=== PATIENT | male | born 1970 | race Caucasian/White ===

== ENCOUNTER 2016-04-25 10:38 | Emergency (ER) | payer BC ==
--- NOTE | 2016-04-25 11:02 | UC ---
Cardiac HPI - HPI Summary HPI Summary: The patient comes in today for: 1. Chest pain: Onset: one week. Palliative/provocative: Laying in bed on his back. Activity does not make it worse. He shoveled snow yesterday and this did not cause any problems. Quality: REtrosternal "lump" sensation. Region: Retrosternal with a heaviness in his back. Nothing in the neck. Severity: /10 Time: Comes and goes. Associated symptoms: Palpitations: Onset "a couple weeks ago." I has had atrial fibrillation in the past. He was told to use medication he gave him to take. He did not have any stress test. He has worn a "heart monitor." And he does not remember it showing anything. He also had this "lump" sensation a couple years ago. No work up was done then and he was taken off lisinopril and put on Bystolic. He thought this made it better. This lump sensation is getting to be worse in severity and frequency. He thinks that he may have had an echocardiogram within the last 3-4 years--"OK." CAD risk factors: HTN: (+). DM: (-). Fm Hx: (+)--father had TN age 48. Cholesterol: (?). Previous disease: (-). Smoker: (-)--quit 12 years ago. Diaphoresis: None. Dyspnea: Mostly with palpitations. Nausea: None. History of GERD: none. * - History of Current Complaint Stated Complaint: PALPITATIONS,CHEST DISCOMFORT Time Seen by Provider: 04/25/16 10:46 Hx Obtained From: Patient - Allergy/Home Medications Allergies/Adverse Reactions: Allergies Allergy/AdvReac Type Severity Reaction Status Date / Time Metronidazole Allergy Dizziness Verified 04/25/16 10:54 Penicillins Allergy Hives Verified 04/25/16 10:54 PMH/Surg Hx/FS Hx/Imm Hx Previously Healthy: No Endocrine History Of: Denies: Diabetes, Thyroid Disease, Hyperthyroidism, Hypothyroidism, Dyslipidemia Cardiovascular History Of: Reports: Hypertension, Atrial Fibrillation - " Denies: Cardiac Disorders, Pacemaker/ICD, Myocardial Infarction, Congestive Heart Failure, Deep Vein Thrombosis, Bleeding Disorders Respiratory History Of: Denies: COPD, Asthma, Bronchitis, Pneumonia, Pulmonary Embolism GI/ History Of: Denies: Gastroesophageal Reflux, Ulcer, Gastrointestinal Bleed, Gall Bladder Disease, Kidney Stones, Diverticulitis, Renal Disease, Urosepsis Neurological History Of: Denies: TIA, CVA, Dementia, Seizures, Migraine Psychological History Of: Denies: Anxiety, Depression, Bipolar Disorder, Schizophrenia, Post Traumatic Stress Disorder Cancer History Of: Denies: Lung Cancer, Colorectal Cancer, Breast Cancer, Prostate Cancer, Cervical Cancer Other History Of: Negative For: HIV, Hepatitis B, Hepatitis C, Anticoagulant Therapy - Surgical History Surgical History: Yes Surgery Procedure, Year, and Place: Right knee arthroscopy 1996. Lypoma removed from back - Family History Known Family History: Positive: Cardiac Disease Negative: Hypertension, Diabetes - Social History Occupation: Employed Full-time Alcohol Use: Daily Substance Use Type: Marijuana Smoking Status (MU): Former Smoker When Did the Patient Quit Smoking/Using Tobacco: 2003 Review of Systems Constitutional: Negative Skin: Negative Eyes: Negative Respiratory: Negative Cardiovascular: Chest Pain Gastrointestinal: Negative Genitourinary: Negative All Other Systems Reviewed And Are Negative: Yes Physical Exam Triage Information Reviewed: Yes Appearance: Well-Appearing, No Pain Distress, Well-Nourished Vital Signs: Initial Vital Signs Temp 98.3 F 04/25/16 10:42 Pulse 67 04/25/16 10:42 Resp 18 04/25/16 10:42 BP 156/93 04/25/16 10:42 Pulse Ox 99 04/25/16 10:42 Vital Signs Reviewed: Yes Eyes: Positive: Conjunctiva Clear. Negative: Discharge ENT: Positive: Hearing grossly normal. Negative: Pharyngeal erythema, Nasal congestion, Nasal drainage, TM bulging, TM dull, TM red, Tonsillar swelling, Tonsillar exudate Dental: Negative: Gross Decay/Caries @, Dental Fracture @ Neck: Positive: Supple, Nontender, No Lymphadenopathy. Negative: Nuchal Rigidity Respiratory: Positive: Lungs clear, No respiratory distress, No accessory muscle use. Negative: Crackles, Wheezing Cardiovascular: Positive: RRR, No Murmur Abdomen Description: Positive: Nontender, No Organomegaly, Soft. Negative: Distended, Hernia @ Musculoskeletal: Positive: Strength Intact, ROM Intact Neurological: Positive: Alert, Muscle Tone Normal Psychological: Positive: Age Appropriate Behavior, Consolable Skin: Negative: rashes, breakdown Diagnostics - Laboratory Diagnostic Studies Completed/Ordered: EKG: Rate: 64. Rhythm: Sinus. Ectopy: None. Acute changes: None. - Assessment/Plan Course Of Treatment: Patient was told that I was concerned that he may have a cardiac cause for his chest pain even though the EKG did not show an obvious problem. He was encouraged to go to [facility] via ambulance, but he did not want to do this, but instead go there by his private car. - Clinical Impression Provider Diagnoses: Chest pain: Rule out TN. - Physician Notifications Discussed Patient Care With: Dr. Drummond was contacted and this patient discussed at 11:17 AM. Discharge - Discharge Plan Condition: Stable Disposition: AGAINST MEDICAL ADVICE Additional Instructions: Patient is to go directly to the [facility].
[2016-04-25 11:24] VITALS: BP 117/79
== END 2016-04-25 11:25 | disposition left against medical advice (07) ==
LOC: UCCORT 10:38
DX: R07.89 Other chest pain (principal); Z88.1 Allergy status to other antibiotic agents; Z88.0 Allergy status to penicillin; Z87.891 Personal history of nicotine dependence
CPT/HCPCS: 93005; 99213; G0463

== ENCOUNTER 2017-05-31 07:27 | Emergency (ER) | payer BC ==
--- NOTE | 2017-05-31 07:39 | UC ---
Complaint Male HPI - HPI Summary HPI Summary: Pt presents to with report of mild, intermittent dysuria x 3 days. Pt denies urgency, frequency, hematuria. No n/v/d. No fever, chills. no penile discharge. No scrotal pain. pt feels emptying bladder Pt with a h/o multiple "compressed discs" in his back. Pt has had these sx before related to back. Pt is leaving to drive to [place] and wanted to get checked before trip. Pt without leg weakness, paresthesia. No change in sensation with wiping. No rectal pain. No difficulty with bowel and bladder. Pt is in monogamous relation. Denies concern for STD. No h/o similar. No analgesia taken pt's medications reviewed this visit - History of Current Complaint Stated Complaint: URINARY COMPLAINT Time Seen by Provider: 05/31/17 07:30 Hx Obtained From: Patient Onset/Duration: Gradual Onset, Lasting Days Timing: Intermittent, Lasting Seconds Severity Initially: Mild Severity Currently: None Pain Scale Used: 0-10 Numeric Location: None Aggravating Factor(s): Other - urination - intermittent Alleviating Factor(s): Nothing Associated Signs And Symptoms: Positive: Negative, Back Pain - chronic - no new changes - Allergies/Home Medications Allergies/Adverse Reactions: Allergies Allergy/AdvReac Type Severity Reaction Status Date / Time metronidazole [From Flagyl] Allergy Dizziness Verified 05/31/17 08:03 Penicillins Allergy Hives Verified 05/31/17 08:03 PMH/Surg Hx/FS Hx/Imm Hx Previously Healthy: Yes Other History Of: Negative For: HIV, Hepatitis B, Hepatitis C, Anticoagulant Therapy - Surgical History Surgical History: Yes Surgery Procedure, Year, and Place: Right knee arthroscopy 1996. Lypoma removed from back - Family History Known Family History: Positive: Cardiac Disease Negative: Hypertension, Diabetes - Social History Occupation: Employed Full-time Lives: With Family Alcohol Use: Daily - Pt denies withdrawal sx - declined offers for referrals Substance Use Type: Marijuana Smoking Status (MU): Former Smoker When Did the Patient Quit Smoking/Using Tobacco: 2003 Review of Systems Constitutional: Negative Gastrointestinal: Negative Genitourinary: Dysuria All Other Systems Reviewed And Are Negative: Yes Physical Exam Triage Information Reviewed: Yes Appearance: Well-Appearing, No Pain Distress, Well-Nourished Vital Signs Reviewed: Yes Eyes: Positive: Conjunctiva Clear ENT: Positive: Hearing grossly normal Neck: Positive: Supple Respiratory: Positive: Lungs clear, Normal breath sounds, No respiratory distress, No accessory muscle use Cardiovascular Exam: Normal Cardiovascular: Positive: RRR, No Murmur Abdominal Exam: Normal Abdomen Description: Positive: Nontender, No Organomegaly, Soft, Other: - no discomfort - soft + BS no guarding, no rebound No CVA Bowel Sounds: Positive: Present Musculoskeletal Exam: Normal Musculoskeletal: Positive: No Edema Neurological Exam: Normal Neurological: Positive: Alert, Muscle Tone Normal Psychological Exam: Normal Psychological: Positive: Normal Response To Family Skin Exam: Normal Complaint Male Course/Dx - Course Course Of Treatment: pt with intermittent episodes of dysuria- similar to past sx he has experienced with is back dx. Pt without other complaints, denies concern for STD. Will check urine. If neg, will culture. will check GC/CH. Pt declined pyridium. pt given Rx for macrobid - will fill and take with him out of state - will await f/u phone call from us. d/w pt concern for back - recommend frequent stop and stretch with drive. heat. pt recommended immediately to ED if sx develop during travels- pt states understanding and agreement (d/w pt sensory,s trength changes, difficulty with urination, etc) - Differential Dx/Diagnosis Provider Diagnoses: dysuria Discharge - Sign-Out/Discharge Documenting (check all that apply): Discharge - Discharge Plan Condition: Stable Disposition: HOME Prescriptions: Nitrofurantoin Macrocrystal [Nitrofurantoin] 100 mg PO BID #14 capsule Patient Education Materials: Dysuria (ED) Referrals: Irvin Hudson MD [Primary Care Provider] - Additional Instructions: - stay well hydrated. Drink plenty of non-caffinated, non-carbonated beverages -okay to alternate ibuprofen (advil, motrin) and tylenol every 3 hours for pain or fever - you urine has been sent for additional testing - you will receive a call from our care team if you need to start the antibiotics. As discussed, fill the prescription and take it with you but do not start unless a care team contact your - Monitor your symptoms closely - if you develop increased back pain, leg weakness, blood in your urine, leg numbness or weakness or other concerns it is recommended you go directly to the nearest emergency department - apply heat to your back - slow gentle stretching - Billing Disposition and Condition Condition: STABLE Disposition: HOME
[2017-05-31 07:42] VITALS: BP 146/76
--- NOTE | 2017-06-02 07:03 | UC ---
- Progress Note Progress Note: Urine culture negative. Ok to stop antibiotics. Discharge - Sign-Out/Discharge Documenting (check all that apply): Discharge - Discharge Plan Condition: Stable Disposition: HOME Prescriptions: Nitrofurantoin Macrocrystal [Nitrofurantoin] 100 mg PO BID #14 capsule Patient Education Materials: Dysuria (ED) Referrals: Irvin Hudson MD [Primary Care Provider] - Additional Instructions: - stay well hydrated. Drink plenty of non-caffinated, non-carbonated beverages -okay to alternate ibuprofen (advil, motrin) and tylenol every 3 hours for pain or fever - you urine has been sent for additional testing - you will receive a call from our care team if you need to start the antibiotics. As discussed, fill the prescription and take it with you but do not start unless a care team contact your - Monitor your symptoms closely - if you develop increased back pain, leg weakness, blood in your urine, leg numbness or weakness or other concerns it is recommended you go directly to the nearest emergency department - apply heat to your back - slow gentle stretching - Billing Disposition and Condition Condition: STABLE Disposition: HOME
== END 2017-05-31 08:12 | disposition home or self-care (01) ==
LOC: UCCORT 07:27
DX: R30.0 Dysuria (principal); Z88.1 Allergy status to other antibiotic agents; Z88.0 Allergy status to penicillin; Z87.891 Personal history of nicotine dependence
CPT/HCPCS: 81003; 87086; 87491; 87591; 99212; G0463

== ENCOUNTER 2017-10-08 17:46 | Emergency (ER) | payer BC ==
[2017-10-08 17:56] VITALS: BP 171/89
[2017-10-08] MEDS ORDERED: Aspirin TAB* 325 MG PO ONE (18:06)
--- NOTE | 2017-10-08 18:13 | UC ---
Cardiac HPI - HPI Summary HPI Summary: 47-year-old male with history of hypertension presents with episode of chest discomfort starting this morning radiating to the left arm, sudden onset, not associated with any short of breath or pleuritic pain. Denies any recent surgeries or immobilization. No prior blood clots in the past. Denies any reproducibility or discomfort with palpation or movement. No prior episodes. Patient has significant family history with dad at the age of 45 from a heart attack. - History of Current Complaint Chief Complaint: UCUpperExtremity Stated Complaint: LEFT ARM PAIN Time Seen by Provider: 10/08/17 17:51 Pain Intensity: 4 - Allergy/Home Medications Allergies/Adverse Reactions: Allergies Allergy/AdvReac Type Severity Reaction Status Date / Time levofloxacin [From Levaquin] Allergy Anaphylatic Verified 10/08/17 17:57 Shock metronidazole [From Flagyl] Allergy Anaphylatic Verified 10/08/17 17:57 Shock Penicillins Allergy Hives Verified 05/31/17 08:03 Home Medications: Home Medications ALPRAZolam TAB* [Xanax TAB*] 0.25 mg PO TID PRN 10/08/17 [History Confirmed ] PMH/Surg Hx/FS Hx/Imm Hx - Additional Past Medical History Additional PMH: Hypertension Other History Of: Negative For: HIV, Hepatitis B, Hepatitis C, Anticoagulant Therapy - Surgical History Surgical History: Yes Surgery Procedure, Year, and Place: Right knee arthroscopy 1996. Lypoma removed from back - Family History Known Family History: Positive: Cardiac Disease Negative: Hypertension, Diabetes - Social History Alcohol Use: Daily Alcohol Amount: 6 Substance Use Type: Marijuana Substance Use Comment - Amount & Last Used: 2 days Smoking Status (MU): Former Smoker When Did the Patient Quit Smoking/Using Tobacco: 2003 Review of Systems Cardiovascular: Other - Chest discomfort Musculoskeletal: Other: - left arm pain as described in history of present illness All Other Systems Reviewed And Are Negative: Yes Physical Exam - Summary Physical Exam Summary: Gen: alert, in no acute distress HEENT: EOMI, normoecphalic, atruamatic Neck: supple, no masses CV: Normal s1 s2, no murmurs. Normal distal pulses in the radial and pedal areas bilaterally Resp: normal breath sounds b/l GI: no tenderness, no masses Musculoskeletal: normal ROM all 4 extremities Skin: no rash Lymph: no lymphadenopathy Psych: appropriate affect, oriented Triage Information Reviewed: Yes Vital Signs: Initial Vital Signs Temp 37.1 C 10/08/17 17:52 Pulse 90 10/08/17 17:52 Resp 16 10/08/17 17:52 BP 171/89 10/08/17 17:52 Pulse Ox 100 10/08/17 17:52 Diagnostics - EKG EKG Comments: Normal sinus rhythm at a rate of 78, no acute ischemic ST segment changes, RSR' pattern in V2 - Assessment/Plan Course Of Treatment: spoke with Dr. Drummond at 1811 who kindly agrees that emergency department evaluation would be appropriate. Patient says he would feel more comfortable driving himself than going in am ambulance. The patient understands discharge instructions to go straight to the emergency department. - Clinical Impression Provider Diagnoses: Chest pain Discharge - Sign-Out/Discharge Documenting (check all that apply): Patient Departure - to the emergency department All imaging exams completed and their final reports reviewed: No Studies - Discharge Plan Condition: Stable Disposition: HOME Referrals: Irvin Hudson MD [Primary Care Provider] - Additional Instructions: PLEASE GO STRAIGHT TO EMERGENCY DEPARTMENT AT [facility] - Billing Disposition and Condition Condition: STABLE Disposition: Home
== END 2017-10-08 18:18 | disposition home health service (06) ==
LOC: UCCORT 17:46
DX: R07.89 Other chest pain (principal); I10 Essential (primary) hypertension; Z88.1 Allergy status to other antibiotic agents; Z88.0 Allergy status to penicillin; Z87.891 Personal history of nicotine dependence; M79.602 Pain in left arm
CPT/HCPCS: 93005; 99212; G0463

== ENCOUNTER 2017-10-12 19:02 | Emergency (ER) | payer BC ==
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
[2017-10-12 20:43] VITALS: BP 142/93
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
== END 2017-10-12 20:45 | disposition home or self-care (01) ==
LOC: UCCORT 19:02
DX: S62.315A Displaced fracture of base of fourth metacarpal bone, left hand, initial encounter for closed fracture (principal); S62.317A Displaced fracture of base of fifth metacarpal bone, left hand, initial encounter for closed fracture; Y04.0XXA Assault by unarmed brawl or fight, initial encounter; Y92.9 Unspecified place or not applicable; Z88.8 Allergy status to other drugs, medicaments and biological substances; Z88.0 Allergy status to penicillin; Z88.1 Allergy status to other antibiotic agents; Z87.891 Personal history of nicotine dependence
CPT/HCPCS: 26755; 28470; 99212; G0463

== ENCOUNTER 2017-11-04 13:15 | Day surgery (SDC) | payer BC ==
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
[2017-11-04] MEDS ORDERED: DiMENhydriNATE IV* 50 MG/ML VIAL IV PUSH PRN (14:56)
[2017-11-04] MEDS ORDERED: Naloxone* 0.4 MG/ML 1 ML VIAL IV PRN (14:56)
[2017-11-04] MEDS ORDERED: HYDROcodone/ACETAMIN 5-325 MG* 1 TAB PO PRN (14:56)
[2017-11-04] MEDS ORDERED: Propofol* 10 MG/ML 20 ML BTL IV PUSH ONE (15:12)
[2017-11-04] MEDS ORDERED: fentaNYL* 50 MCG/ML 2 ML VIAL (100 MCG VIAL) ONE ×4 (15:12→18:33)
[2017-11-04] MEDS ORDERED: Midazolam* 1 MG/ML 5 ML VIAL (5 MG) ONE (15:12)
[2017-11-04] MEDS ORDERED: Lidocaine 2% PF * 5 ML VIAL ONE (15:12)
[2017-11-04] MEDS ORDERED: Clindamycin 900 MG/D5W BAG(*) 900 MG/50 ML BAG IVPB ONE (15:23)
[2017-11-04] MEDS ORDERED: Ketorolac INJ* 30 MG/ML 1 ML VIAL ONE (15:46)
[2017-11-04] MEDS ORDERED: Bupivacaine 0.5% SDV PF* 30ML VIAL ONE (16:32)
[2017-11-04] MEDS ORDERED: Ondansetron INJ* 2 MG/ML VIAL ONE (16:48)
[2017-11-04] MEDS ORDERED: PROCHLORPERAZINE INJ 5 MG/ML 2 ML VIAL ONE (17:33)
[2017-11-04] MEDS: fentaNYL* 50 MCG/ML 2 ML VIAL (100 MCG VIAL) IV PRN ×2 (18:34→18:59)
[2017-11-04] MEDS ORDERED: oxyCODONE/Acetamin 5/325 MG* TAB ONE ×2 (18:54→19:56)
[2017-11-04] MEDS: oxyCODONE/Acetamin 5/325 MG* TAB PO PRN ×2 (18:58→19:56)
[2017-11-04 20:12] VITALS: BP 135/84
--- NOTE | 2017-11-05 07:05 | RAD ---
INDICATION: Left hand operative reduction internal fixation. COMPARISON: Comparison is made with a prior x-ray study of the left hand from October 12, 2017. TECHNIQUE: 10 seconds of intermittent fluoroscopic guidance were provided and 4 spot films of the left hand were obtained in the operating room. FINDINGS: The films demonstrate surgical plates present along the dorsal aspect of the fourth and fifth metacarpals spanning the fracture fragments. The bones are in normal alignment. IMPRESSION: INTRAOPERATIVE CONTROL FILMS. CPT II Codes: G9500
--- NOTE | 2017-11-05 12:29 | OP ---
DATE OF OPERATION: 11/04/17 [facility] DATE OF : 70 SURGEON: Clifton Bustamante MD ASSISTANTS: 1. ABIMAEL Mirza 2. ABIMAEL Zhang An optometrist assistant was needed for the entirety of the procedure to aid in position of the arm and retraction. ANESTHESIOLOGIST: Dr. Muse. ANESTHESIA: General. PRE-OP DIAGNOSES: 1. Left displaced and rotated fourth metacarpal shaft fracture. 2. Left displaced and rotated fifth metacarpal fracture. POST-OP DIAGNOSES: 1. Left displaced and rotated fourth metacarpal shaft fracture. 2. Left displaced and rotated fifth metacarpal fracture. OPERATIVE PROCEDURE: 1. Open reduction internal fixation, left fourth metacarpal fracture. 2. Open reduction internal fixation, left fifth metacarpal fracture. INDICATIONS: Norm's fractures were little over 3 weeks old. He has been attempting to treat this non-operatively. It became frankly rotated. He was seen by me. We talked about surgical intervention. He wanted to proceed. He understands the risks of infection, nonunion, malunion, hardware failure, neurovascular injury including numbness on the dorsum of the hand. He wishes to proceed. ESTIMATED BLOOD LOSS: 2 mL. COMPLICATIONS: None. FINDINGS: See above and below. DESCRIPTION OF PROCEDURE: Norm was seen in the preoperative holding area. The correct site, side, and procedure were identified. We came back to the operating room where the arm was prepped and draped in the usual fashion. A time-out was performed. The arm was exsanguinated with the Esmarch and the tourniquet was inflated to 250 mmHg. I made a longitudinal incision on the dorsum of the hand between the fourth and fifth metacarpals. Dissection was carried down. The interval between the EDM and EDC tendons was utilized to gain access to the fifth metacarpal shaft. Distally, the extensor barrios was split a little bit to allow access to the great distal fracture. I then released the periosteum over the fourth metacarpal shaft and subperiosteal dissection was used to expose the fourth metacarpal shaft fracture. I went ahead and mobilized the fracture. There was a quite bit of soft callus, which was all curetted away and excised. I first reduced the fifth metacarpal shaft fracture and clamped this with a [id number]-tqcxepucb clamp and placed a couple of 1.5-mm countersunk lag screws. I then placed a T-plate distally leaving the plate just proximal to the articular surface of the metacarpal head. This was secured with locking screws distally and cortical screws proximally. I then reduced the fourth metacarpal fracture, placed a couple of lag screws across the very long oblique fracture. I then trimmed to size and placed a 1.5- mm plate of the Synthes Variable Angle handset. This was secured distally and proximally. Once everything was looking good, I irrigated out the wound. Final fluoroscopic imaging showed anatomic alignment of the fractures and appropriate hardware placement. I then closed the periosteum over the fourth metacarpal fracture. I closed the periosteum and capsule distally over the fifth metacarpal plate. Proximally, I was not able to close it up. My split in the extensor barrios was repaired with 4-0 Prolene sutures. The wound was then irrigated out. The wound was closed with 3-0 Monocryl suture and Steri-Strips. 0.5% Marcaine was infiltrated into the operative area. The wounds were dressed and a short-arm ulnar gutter splint was applied leaving the index finger free. The hand was splinted in the intrinsic plus position. Tourniquet was deflated. Hand pinked up immediately. He has been taken to recovery room in stable condition. [id number]/[facility] #: [id number] JANEY
== END 2017-11-04 20:40 | disposition home or self-care (01) ==
LOC: OR 13:15
PROVIDERS: ATTEND Orthopaedic Surgery Hand Surgery
DX: S62.325A Displaced fracture of shaft of fourth metacarpal bone, left hand, initial encounter for closed fracture (principal); S62.327A Displaced fracture of shaft of fifth metacarpal bone, left hand, initial encounter for closed fracture; Y04.0XXA Assault by unarmed brawl or fight, initial encounter; Y92.9 Unspecified place or not applicable; I10 Essential (primary) hypertension; Z87.891 Personal history of nicotine dependence
CPT/HCPCS: 76000; A9270-GY; C1713; C1776; J0780; J1885; J2250; J2405; J2704; J3010

== ENCOUNTER 2018-01-23 10:50 | Day surgery (SDC) | payer BC ==
[~2018-01-23 10:50] MED LIST: Buffered Lidocaine 0.9% SYRIN* 5 ML/SYR SYRINGE INTRADERM ONE; Dexamethasone IV* 4 MG/ML 1 ML (4 MG) IV SLOW PU ONE; Dexamethasone IV* 4 MG/ML 1 ML (4 MG) ONE; Famotidine IV* 10 MG/ML 2 ML (20 mg) IV ONE; Famotidine IV* 10 MG/ML 2 ML (20 mg) ONE; Lactated Ringers 1000 ML Bag* 1,000 ML IV SCH
[2018-01-23] MEDS ORDERED: Midazolam* 1 MG/ML 5 ML VIAL (5 MG) ONE (12:30)
[2018-01-23] MEDS ORDERED: fentaNYL* 50 MCG/ML 5 ML VIAL (250 MCG VIAL) ONE (12:30)
[2018-01-23] MEDS ORDERED: Ketorolac INJ* 30 MG/ML 1 ML VIAL ONE (12:33)
[2018-01-23] MEDS ORDERED: Ondansetron INJ* 2 MG/ML VIAL ONE (12:33)
[2018-01-23] MEDS ORDERED: Propofol* 10 MG/ML 20 ML BTL ONE (12:33)
[2018-01-23] MEDS ORDERED: Lidocaine 2% PF * 5 ML VIAL ONE (12:33)
[2018-01-23] MEDS ORDERED: Bupivacaine 0.25% SDV PF* 10 ML VIAL INJ ONE ×2 (12:35→14:20)
[2018-01-23] MEDS ORDERED: Betamethasone INJ* 6 MG/ML 5 ML VIAL (30 MG) ONE (14:00)
[2018-01-23] MEDS ORDERED: fentaNYL* 50 MCG/ML 2 ML VIAL (100 MCG VIAL) IV PRN (14:12)
[2018-01-23] MEDS ORDERED: Naloxone* 0.4 MG/ML 1 ML VIAL IV PRN (14:12)
[2018-01-23] MEDS ORDERED: oxyCODONE/Acetamin 5/325 MG* TAB PO PRN (14:12)
[2018-01-23] MEDS ORDERED: DiMENhydriNATE IV* 50 MG/ML VIAL IV PUSH PRN (14:12)
[2018-01-23] MEDS ORDERED: Ondansetron INJ* 2 MG/ML VIAL IV PRN (14:12)
[2018-01-23] MEDS ORDERED: HYDROmorphone INJ1* 1 MG/ML SYRINGE IV PRN (14:12)
[2018-01-23] MEDS ORDERED: oxyCODONE/Acetamin 5/325 MG* TAB ONE (14:34)
[2018-01-23 15:02] VITALS: BP 118/75
--- NOTE | 2018-01-23 20:55 | OP ---
DATE OF PROCEDURE: 01/23/18 - [facility] DATE OF : 70 SURGEON: Clifton Bustamante MD PRESIDENT FINANCIAL INSTITUTION: None. ANESTHESIOLOGIST: Dr. Yu. ANESTHESIA: General. PRE-PROCEDURE DIAGNOSIS: Global left hand stiffness, status post open reduction and internal fixation, left 4th and 5th metacarpal bones over a couple of months ago. POST-PROCEDURE DIAGNOSIS: Global left hand stiffness, status post open reduction and internal fixation, left 4th and 5th metacarpal bones over a couple of months ago. OPERATIVE PROCEDURE: Manipulation under anesthesia, left hand including all four MCP and all four PIP joints of the index, middle, ring, and the small fingers. INDICATIONS: Norm had the aforementioned injury and it has gotten quite stiff. He really is having difficult time moving the hand. He has developed a bit of a regional pain syndrome type picture. He has been working with his therapist. We tried to see if we could increase his motion incrementally by doing a manipulation now that the bone has solidly healed. ESTIMATED BLOOD LOSS: 0 mL. COMPLICATIONS: None. FINDINGS: See above and below. DESCRIPTION OF PROCEDURE: Norm was seen in the preoperative holding area. The correct side, site, and procedure were identified. We came back to the operating room where anesthesia was then induced and we had a time-out. I then manipulated each of the MP joints and IP joints of the left hand. There were several bands of scar tissue that were noted to give way. The MP flexion and PIP flexion as well as the small finger PIP extension were all markedly improved with the manipulation. I told Norm that I would give him a wrist block to help with postoperative discomfort. I did that with 0.25% Marcaine. While I was doing the manipulation, I did infiltrate a little bit of betamethasone around the A1 massimo areas, particularly of the middle finger as it felt like it was quite tight there. He did very well and tolerated this all very well. He was woken up and taken to the recovery room in stable condition. [id number]/[facility] #: [id number] MTDD
== END 2018-01-23 15:15 | disposition home or self-care (01) ==
LOC: OREAST 10:50
PROVIDERS: ATTEND Orthopaedic Surgery Hand Surgery
DX: M25.642 Stiffness of left hand, not elsewhere classified (principal); S62.327S Displaced fracture of shaft of fifth metacarpal bone, left hand, sequela; S62.32 Displaced fracture of shaft of other metacarpal bone; I10 Essential (primary) hypertension; Z88.0 Allergy status to penicillin; Z88.8 Allergy status to other drugs, medicaments and biological substances; Z87.891 Personal history of nicotine dependence
CPT/HCPCS: A9270-GY; J0702; J1100; J1885; J2250; J2405; J2704; J3010; J3490

== ENCOUNTER 2018-04-17 17:58 | Emergency (ER) | payer BC ==
[2018-04-17 19:18] VITALS: BP 125/64
--- NOTE | 2018-04-17 20:11 | UC ---
Complaint Male HPI - HPI Summary HPI Summary: 47-year-old male comes in with a chief complaint of pain in his penis. Been going on for about a month. He had his urine checked his primary care doctors and also he had a rectal exam and he did not have pain with massage of the prostate. No fevers or chills. Reports normal bowel movements. Has not seen any blood in his urine. Over the last several days he has developed left flank pain. Does have a history of diverticulosis. No nausea. Denies any concern of STI. No complaint of any testicular or scrotal pain. - History of Current Complaint Chief Complaint: UCGU Stated Complaint: BACK PAIN,URINARY COMPLAINT Time Seen by Provider: 04/17/18 19:51 Pain Intensity: 3 - Allergies/Home Medications Allergies/Adverse Reactions: Allergies Allergy/AdvReac Type Severity Reaction Status Date / Time Iodinated Contrast- Oral and Allergy Severe Anaphylatic Verified 01/23/18 11:28 IV Dye Shock levofloxacin [From Levaquin] Allergy Severe Anaphylatic Verified 01/23/18 11:28 Shock metronidazole [From Flagyl] Allergy Severe Anaphylatic Verified 01/23/18 11:28 Shock Penicillins Allergy Severe Hives Verified 01/23/18 11:28 PMH/Surg Hx/FS Hx/Imm Hx Previously Healthy: Yes Other History Of: Negative For: HIV, Hepatitis B, Hepatitis C, Anticoagulant Therapy - Surgical History Surgical History: Yes Surgery Procedure, Year, and Place: Right knee arthroscopy 1996. Lypoma removed from back. left hand surgery 11/04/2017. wisdom teeth removed. colonoscopy - Family History Known Family History: Positive: Cardiac Disease Negative: Hypertension, Diabetes - Social History Alcohol Use: Daily Alcohol Amount: 6 Substance Use Type: Marijuana Substance Use Comment - Amount & Last Used: daily user Smoking Status (MU): Former Smoker Type: Cigarettes Amount Used/How Often: 1 ppd Length of Time of Smoking/Using Tobacco: approx 20+ yrs When Did the Patient Quit Smoking/Using Tobacco: 2003 Review of Systems All Other Systems Reviewed And Are Negative: Yes Constitutional: Positive: Negative Skin: Positive: Negative Eyes: Positive: Negative ENT: Positive: Negative Respiratory: Positive: Negative Cardiovascular: Positive: Negative Gastrointestinal: Positive: Other - SEE HPI Genitourinary: Positive: Vaginal/Penile Pain. Negative: Hematuria, Ulceration/ Lesion Motor: Positive: Negative Neurovascular: Positive: Negative Musculoskeletal: Positive: Negative Neurological: Positive: Negative Psychological: Positive: Negative Is Patient Immunocompromised?: No Physical Exam Triage Information Reviewed: Yes Appearance: Well-Appearing, No Pain Distress, Well-Nourished Vital Signs: Initial Vital Signs Temp 98.3 F 04/17/18 19:13 Pulse 60 04/17/18 19:13 Resp 15 04/17/18 19:13 BP 125/64 04/17/18 19:13 Pulse Ox 100 04/17/18 19:13 Vital Signs Reviewed: Yes Eye Exam: Normal Eyes: Positive: Conjunctiva Clear Neck exam: Normal Neck: Positive: Supple Respiratory: Positive: Lungs clear, Normal breath sounds, No respiratory distress Cardiovascular: Positive: RRR Abdomen Description: Positive: Nontender, Soft, CVA Tenderness (L). Negative: CVA Tenderness (R), Distended, Guarding Bowel Sounds: Positive: Present Male Genital Exam: Positive: Normal Genitalia. Negative: Epididymal Tenderness , Inguinal Tenderness, Lesions, Scrotum Tenderness (R), Scrotum Tenderness (L), Testicular Tenderness (R), Testicular Tenderness (L), Urethral Discharge Musculoskeletal Exam: Normal Musculoskeletal: Positive: Strength Intact, ROM Intact Neurological Exam: Normal Neurological: Positive: Alert, Muscle Tone Normal Psychological Exam: Normal Psychological: Positive: Age Appropriate Behavior Skin Exam: Normal Complaint Male Course/Dx - Differential Dx/Diagnosis Provider Diagnosis: Left flank pain, Penis pain Discharge - Sign-Out/Discharge Documenting (check all that apply): Patient Departure All imaging exams completed and their final reports reviewed: Yes - Discharge Plan Condition: Stable Disposition: HOME Prescriptions: Sulfamethox/Trimethoprim DS* [Bactrim DS 800/160 TAB*] 1 tab PO BID #26 tab Patient Education Materials: Flank Pain (ED) Referrals: Irvin Hudson MD [Primary Care Provider] - Gary Cavazos MD [Medical Doctor] - Gage Short MD [Medical Doctor] - Additional Instructions: FOLLOW UP WITH UROLOGY. GET RECHECKED FOR ANY WORSENING OF YOUR CONDITION; PAIN, FEVER, YOU FEEL ILL OR QUESTIONS OR CONCERNS. - Billing Disposition and Condition Condition: STABLE Disposition: Home
[2018-04-17] MEDS ORDERED: Sulfamethox/Trimethoprim DS 800/160* TAB PO ONE ×2 (22:07)
[2018-04-18 11:00] LABS: ABS Basophils 0 10^3/ul (0-0.2); ABS Eosinophils 0 10^3/ul (0-0.6); ABS Lymphocytes 1.6 10^3/ul (1.0-4.8); ABS Monocytes 0.6 10^3/ul (0-0.8); ABS Neutrophils 4.8 10^3/ul (1.5-7.7); ABS Nucleated RBC 0 10^3/ul; Eosinophil % 0.6 %; Hematocrit 42 % (42-52); Hemoglobin 14.1 g/dl (14.0-18.0); Lymphocyte % 23.1 %; Mean Corpuscular HGB Conc 33 g/dl (31-36); Mean Corpuscular Hemoglobin 31 pg (27-31); Mean Corpuscular Volume 93 fL (80-94); Mean Platelet Volume 8.9 fL (7.4-10.4); Nucleated Red Blood Cells % 0.1; Platelet Count 302 10^3/ul (150-450); Red Blood Count 4.57 10^6/ul (4.00-5.40); Red Cell Distribution Width 14 % (10.5-15); White Blood Count 7.1 10^3/ul (3.5-10.8)
[2018-04-18 11:13] LABS: Albumin 4.8 g/dL (3.2-5.2); Anion Gap 6 mmol/L (2-11); CO2 Carbon Dioxide 30 mmol/L (22-32); Chloride 102 mmol/L (101-111); Potassium 4.1 mmol/L (3.5-5.0); Sodium 138 mmol/L (135-145)
[2018-04-18 11:19] LABS: ALT 16 U/L (7-52); AST 14 U/L (13-39); Albumin/Globulin Ratio 2.3 (1-3); Alkaline Phosphatase 83 U/L (34-104); BUN/Creatinine Ratio 25.3 (8-20); Blood Urea Nitrogen 22 mg/dL (6-24); C Reactive Protein < 1.00 mg/L (<8.01); EGFR African American 113.8 (>60); EGFR Non-African American 94.1 (>60); Globulin 2.1 g/dL (2-4); Glucose 93 mg/dL (70-100); Total Protein 6.9 g/dL (6.4-8.9)
[2018-04-21 12:47] LABS: Neisseria gonorrhoeae (GC) RNA Negative (Negative)
== END 2018-04-17 22:19 | disposition home or self-care (01) ==
LOC: UCCORT 17:58
DX: N48.89 Other specified disorders of penis (principal); R10.9 Unspecified abdominal pain; K57.30 Diverticulosis of large intestine without perforation or abscess without bleeding; Z91.041 Radiographic dye allergy status; Z88.1 Allergy status to other antibiotic agents; Z88.0 Allergy status to penicillin; Z87.891 Personal history of nicotine dependence
CPT/HCPCS: 36415; 74176; 80053; 81003; 85025; 86140; 87086; 87491; 87591; 99212; A9270-GY; G0463

== ENCOUNTER 2018-05-31 17:00 | Emergency (ER) | payer BC ==
[2018-05-31 17:21] VITALS: BP 110/71
--- NOTE | 2018-05-31 17:31 | UC ---
Abdominal Pain Male HPI - HPI Summary HPI Summary: Pt with history of recurrent diverticulitis. Pt was hospitalized x 10 days for diverticlast summer. no surgery - has met with surgeon. Pt with h/o small perforation - no abscess, no intervention. Pt here with 3 days of progressive LLQ pain, mild nausea. Pt states feels like his typical diverticulitis. + chills , no fever. + diarrhea x 2 days. No dysuria, hematuria, testiclur or penile pain Pt with h/o anaphylaxis to Levofloxacin, Flagyl Hives to Pcn, augmentin medications UTD - History of Current Complaint Chief Complaint: UCGI Stated Complaint: LOWER ABD PAIN Time Seen by Provider: 05/31/18 17:27 Hx Obtained From: Patient Timing: Constant Severity Initially: Mild Severity Currently: Mild Pain Intensity: 2 - Allergies/Home Medications Allergies/Adverse Reactions: Allergies Allergy/AdvReac Type Severity Reaction Status Date / Time Iodinated Contrast- Oral and Allergy Severe Anaphylatic Verified 05/31/18 17:09 IV Dye Shock levofloxacin [From Levaquin] Allergy Severe Anaphylatic Verified 05/31/18 17:09 Shock metronidazole [From Flagyl] Allergy Severe Anaphylatic Verified 05/31/18 17:09 Shock Penicillins Allergy Severe Hives Verified 05/31/18 17:09 ciprofloxacin Allergy anaphylaxis Verified 05/31/18 17:25 to levofloxacin PMH/Surg Hx/FS Hx/Imm Hx Previously Healthy: Yes Other History Of: Negative For: HIV, Hepatitis B, Hepatitis C, Anticoagulant Therapy - Surgical History Surgical History: Yes Surgery Procedure, Year, and Place: Right knee arthroscopy 1996. Lypoma removed from back. left hand surgery 11/04/2017. wisdom teeth removed. colonoscopy - Family History Known Family History: Positive: Cardiac Disease, Non-Contributory Negative: Hypertension, Diabetes - Social History Lives: With Family Alcohol Use: Daily Alcohol Amount: 6 beers Substance Use Type: Marijuana Substance Use Comment - Amount & Last Used: frequent use, last was 05/31/18 Smoking Status (MU): Former Smoker Type: Cigarettes Amount Used/How Often: 1 ppd Length of Time of Smoking/Using Tobacco: approx 20+ yrs When Did the Patient Quit Smoking/Using Tobacco: 2003 Review of Systems All Other Systems Reviewed And Are Negative: Yes Constitutional: Positive: Chills Skin: Positive: Negative Eyes: Positive: Negative Gastrointestinal: Positive: Abdominal Pain, Diarrhea. Negative: Nausea Genitourinary: Negative: Hematuria, Frequency, Urgency Physical Exam - Summary Physical Exam Summary: Vital Signs Reviewed: Yes A+Ox3, no distress Eyes: Conjunctiva Clear, FELIX. EOM intact and full ENT: Hearing grossly normal TM x 2 clear, mmoist, uvula midline, no exudate, no erythema Neck: Positive: Supple Respiratory: Positive: No respiratory distress, No accessory muscle use + CTA throughout no w/r Cardiovascular: RRR nl s1, s2 no m/r CBT <2 sec abd soft + BS, + TTP LLE no guarding, no reboun neg CVA Musculoskeletal Exam: MATHEW x 4 without difficulty Strength Intact, ROM Intact Neurological: Positive: Alert, + sensation throughout Psychological: Positive: Normal Response To Family Skin: Positive: no rash, no ecchymosis Triage Information Reviewed: Yes Vital Signs: Initial Vital Signs Temp 98.7 F 05/31/18 17:11 Pulse 76 05/31/18 17:11 Resp 20 05/31/18 17:11 BP 110/71 05/31/18 17:11 Pulse Ox 100 05/31/18 17:11 Abd Pain Male Course/Dx - Course Course Of Treatment: Patient presents to urgent care reporting to 3 days of progressive left lower quadrant pain. Patient states it feels similar to his past episodes of diverticulitis. Patient states he has had some indolent ongoing back pain that is attributed to an old back injury. No fevers or chills. No analgesia taken. No pain in his penis or testicles. On exam patient with tenderness left lower quadrant. Patient's urinalysis negative for acute process. I had a long discussion with patient. His previous surgeon is not superintendent operations division today. Patient unable to take standard of care antibiotics. We'll consider clindamycin if new had sure follow-up. We'll discharge patient with recommendation to emergency department. Patient states understanding agreement with plan. - Differential Dx/Clinical Impression Provider Diagnosis: Abdominal pain Discharge - Sign-Out/Discharge Documenting (check all that apply): Patient Departure All imaging exams completed and their final reports reviewed: No Studies - Discharge Plan Condition: Stable Disposition: HOME-RECOMMEND TO ED Patient Education Materials: Acute Abdominal Pain (ED) Referrals: Irvin Hudson MD [Primary Care Provider] - Additional Instructions: The doctor that evaluated you today thinks that you need additional testing that can be completed the emergency department. It is recommended that you go directly to emergency department for further evaluation. This evaluation may include blood work or imaging. This testing will be directed and decided by the provider that evaluate you at the emergency department. If pain becomes worse, you feel lightheaded, you have uncontrolled vomiting, or you have any other concerns while you are being driven to emergency department as recommended to pullover and contact 911. - Billing Disposition and Condition Condition: STABLE Disposition: Home-Recommend to ED
== END 2018-05-31 17:49 | disposition home health service (06) ==
LOC: UCCORT 17:00
DX: R10.32 Left lower quadrant pain (principal); R11.0 Nausea; Z88.0 Allergy status to penicillin; Z88.1 Allergy status to other antibiotic agents; Z91.041 Radiographic dye allergy status; Z87.891 Personal history of nicotine dependence
CPT/HCPCS: 81003; 99212; G0463

== ENCOUNTER 2018-12-20 08:46 | Emergency (ER) | payer BC, OTHER ==
--- OUTSIDE RECORDS SUMMARY | 2018-12-20 08:52 | XMS REPORT | Summary of Care ---
:1970 Author Organization [facility] Address [address] [address] Care Team Providers Name Role Phone Irvin Hudson MD Primary Care Provider Reason for Visit Reason Comments New Patient Encounter Details Date Type Department Care Team Description 11/05/2018 Office Visit [place], Sigmoid diverticulitis Surgery (Primary Dx) [facility] [address] [address] [place] [id number] [phone] Allergies Active Allergy Reactions Severity Noted Date Comments Benadryl Allergy Other 11/05/2018 Heart palpitations Metronidazole Anaphylaxis 11/05/2018 Ct Dye Unknown Reaction 11/05/2018 Levaquin Anaphylaxis 11/05/2018 Penicillins Hives 11/05/2018 documented as of this encounter (statuses as of 11/05/2018) Medications Medication Sig Dispensed Refills Start Date End Date Status Nebivolol HCl Take by mouth. 0 Active (BYSTOLIC) 10 MG Oral Tab Irbesartan-hydroCHLOROt Take by mouth. 0 Active hiazide 150-12.5 MG Oral Tab PROPAFENONE HCL ER PO Take by mouth 0 Active NEEDED. documented as of this encounter (statuses as of 11/05/2018) Active Problems Problem Noted Date Sigmoid diverticulitis (recurrent episodes) 11/05/2018 documented as of this encounter (statuses as of 11/05/2018) Social History Tobacco Use Types Packs/Day Years Used Date Former Smoker 0 Smokeless Tobacco: Never Used Sex Assigned at Date Recorded Not on file Job Start Date Occupation Industry Not on file Not on file Not on file Travel History Travel Start Travel End No recent travel history available. documented as of this encounter Last Filed Vital Signs Vital Sign Reading Time Taken Comments Blood Pressure 120/70 11/05/2018 11:16 AM EDT Pulse - - Temperature - - Respiratory Rate - - Oxygen Saturation - - Inhaled Oxygen Concentration - - Weight 94.3 kg (208 lb) 11/05/2018 11:16 AM EDT Height 188 cm (6' 2") 11/05/2018 11:16 AM EDT Body Mass Index 26.71 11/05/2018 11:16 AM EDT documented in this encounter Progress Notes Clifton Pat MD - 11/05/2018 10:30 AM EDT [facility] Consult Note [address] [place] [address] Name: Norm Moreno : 1970 Age: 48-y.o. ADMISSION DATE: 11/05/2018 [facility] ATTENDING: Clifton Pat MD PCP: Irvin Hudson Chief Complaint: Recurrent episodes of sigmoid diverticulitis History of Present Illness Norm Moreno is a 48-y.o. male who overall is enjoyed excellent health. However, he had an episode of left lower quadrant pain and was diagnosed with his first episode of sigmoid diverticulitis 7 to8 years ago. This was a clinical diagnosis and not confirmed by CT scan evaluation. In the past 78years he has had approximately 10 episodes of what was labeled sigmoid diverticulitis. These episodes usually start with left lower quadrant discomfort that is not necessarily associated with tenderness. He will then have some diarrheal stools. He has been consistently treated with outpatient oral antibiotics but this is become difficult because he had an anaphylactic reaction to Levaquin. He wasbeing treated with Flagyl at that time and also was told to avoid that because it could have had something to do with the documented anaphylactic reaction as well. Augmentin has caused hives. He doestolerate cephalosporins, clindamycin, and ertapenem. This year he has had 3 episodes of the diverticulitis. He had a mild episode in May and then another mild episode in August. In September, after being treated with a full course of oral antibiotics in August, he presented with left lower quadrant pain. A CT scan raised the question of mild sigmoid diverticulitis involving a short segment in the proximal sigmoid colon. Because this was felt to have been a persistent diverticulitis and not responsive to outpatient oral antibiotics, he was admitted to the hospital and treated with IV ertapenem. The symptoms did resolve. Over the past few weeks he hashad some episodes of dull left lower quadrant pain but no further symptomatology. Past Medical History: Diagnosis Date A-fib (HCC) Diverticulitis Hypertension Past Surgical History: Procedure Laterality Date COLONOSCOPY History reviewed. No pertinent family history. No family status information on file. Social History: reports that he has quit smoking. He smoked 0.00 packs per day. He has never used smokeless tobacco. Prior to Admission medications Medication Sig Irbesartan-hydroCHLOROthiazide 150-12.5 MG Oral Tab Take by mouth. Nebivolol HCl (BYSTOLIC) 10 MG Oral Tab Take by mouth. PROPAFENONE HCL ER PO Take by mouth NEEDED. Allergies Allergen Reactions Benadryl Allergy Other Heart palpitations Flagyl [Metronidazole] Anaphylaxis Iv Contrast [Ct Dye] Unknown Reaction Levaquin Anaphylaxis Penicillins Hives Review of Systems Review of Systems Constitutional: Negative for chills, fever and weight loss. HENT: Negative. Eyes: Negative. Respiratory: Negative. Cardiovascular: Negative. Gastrointestinal: Negative for constipation. Genitourinary: Negative. Musculoskeletal: Negative. Skin: Negative. Neurological: Negative. Endo/Heme/Allergies: Negative. Physical Exam Vitals: Blood pressure 120/70, height 6' 2" (1.88 m), weight 208 lb (94.3 kg)., Body mass index is 26.71 kg/m. Alert and oriented x3. Anicteric. Neck is supple. Chest clear to auscultation. Heart S1-S2 without a murmur. Abdomen is soft and nontender. No masses or hernias. Rectal exam was deferred. Extremity is warm and well-perfused. Neurologic exam is grossly intact. Data Review Studies: CT scan of the abdomen and pelvis done in September is reviewed. There is mild thickening andperhaps mild pericolonic infiltrative changes associated with the junction of the first third and second third of the sigmoid colon. There is no free fluid or free air. Assessment and Plan: . I think that the patient has likely had some mild episodes of sigmoid diverticulitis through the years, but no significant episode and certainly no complications related to these. It is a worry that he does not have a lot of outpatient antibiotic options for treatment of possible flares of diverticulitis. However, I would not recommend to him elective sigmoid colectomy at this time. It is a very low risk that he would go on to a free perforation requiring emergent surgery with a temporary colostomy, though no one can guarantee this would not happen. I have instead asked the patient to contact my office if he has recurrent symptoms. I would very much want to examine him during that episode and even get appropriate blood work (CBC and CRP) and if necessary, a CT scan at that time. If he has evidence of persistent recurrent episodes, I would then consider a barium enema study to look for evidence of chronic stricture formation at the affected site. The patient is relieved that he does not have to move ahead right now with surgery. He is also comfortable with the idea of careful observation and office evaluation if he has recurrent symptoms. He knows to call anytime with any concerns regarding this. Author: Clifton Pat MDElectronically signed by Clifton Pat MD at 6:54 PM EDTdocumented in this encounter Plan of Treatment Health Maintenance Due Date Last Done Comments DEPRESSION SCREENING 1982 HIV SCREENING 1985 DIABETES SCREENING 1988 LIPID DISORDER SCREENING 1988 INFLUENZA VACCINE (#1) 2018 HPV IMMUNIZATION SERIES Aged Out No longer eligible based on patient's age to complete this topic MENINGOCOCCAL VACCINE IMM Aged Out No longer eligible based on patient's age to complete this topic PNEUMOCOCCAL 0-64 YRS Aged Out No longer eligible based on patient's age to complete this topic documented as of this encounter Results Not on filedocumented in this encounter Visit Diagnoses Diagnosis Sigmoid diverticulitis - Primary Diverticulitis of colon (without mention of hemorrhage) documented in this encounter
[2018-12-20 09:02] VITALS: BP 124/77
--- NOTE | 2018-12-20 09:29 | UC ---
Complaint Male HPI - HPI Summary HPI Summary: Patient is 48 year old male, who present today to the urgent care with urinary symptoms for past 10 days. Intermittent urethral "burning pain" and increased urinary frequency and ccasional difficulty initiating urinary stream for about ten days. Similar previous episodes that he never was given a diagnosis for. Denies penile discharge, urinary urgency, dysuria, gross hematuria. Denies concern for STD/ STI. He has had this symptoms for a long time and has been evaluated in the past, CT scan was done here and was -8 months ago. He feels that the burning is there all the time Denies any fever, chills, chest pain or shortness of breath, no abdominal pain - History of Current Complaint Chief Complaint: UCGU Stated Complaint: URINARY COMPLAINT Time Seen by Provider: 12/20/18 09:18 Hx Obtained From: Patient Pain Intensity: 3 - Allergies/Home Medications Allergies/Adverse Reactions: Allergies Allergy/AdvReac Type Severity Reaction Status Date / Time Iodinated Contrast Media Allergy Severe Anaphylatic Verified 12/20/18 08:58 [Iodinated Contrast- Oral Shock and IV Dye] levofloxacin [From Levaquin] Allergy Severe Anaphylatic Verified 12/20/18 08:58 Shock metronidazole [From Flagyl] Allergy Severe Anaphylatic Verified 12/20/18 08:58 Shock Penicillins Allergy Severe Hives Verified 12/20/18 08:58 ciprofloxacin Allergy anaphylaxis Verified 12/20/18 08:58 to levofloxacin diphenhydramine Allergy Tachycardia, Verified 12/20/18 08:58 Sweating, Near Syncope PMH/Surg Hx/FS Hx/Imm Hx - Additional Past Medical History Additional PMH: Past Medical History : Diverticulitis, hypertension Past Surgical History: Right knee arthroscopy 1996 Lypoma removed from back left hand surgery 11/04/2017 wisdom teeth removed colonoscopydure Family History : non contributory Social History : 6 beers daily, past smoker quit in 2003, marijuana. Previously Healthy: Yes Other History Of: Negative For: HIV, Hepatitis B, Hepatitis C, Anticoagulant Therapy - Surgical History Surgical History: Yes Surgery Procedure, Year, and Place: Right knee arthroscopy 1996. Lypoma removed from back. left hand surgery 11/04/2017. wisdom teeth removed. colonoscopy - Family History Known Family History: Positive: Cardiac Disease, Non-Contributory Negative: Hypertension, Diabetes - Social History Alcohol Use: Daily Alcohol Amount: 6 beers Substance Use Type: Marijuana Substance Use Comment - Amount & Last Used: frequent use, last was 05/31/18 Smoking Status (MU): Former Smoker Type: Cigarettes Amount Used/How Often: 1 ppd Length of Time of Smoking/Using Tobacco: 1 PPD x 20 Years When Did the Patient Quit Smoking/Using Tobacco: 2003 Review of Systems All Other Systems Reviewed And Are Negative: Yes Constitutional: Positive: Negative Skin: Positive: Negative Eyes: Positive: Negative ENT: Positive: Negative Respiratory: Positive: Negative Cardiovascular: Positive: Negative Gastrointestinal: Positive: Negative Genitourinary: Positive: Other - Penile burning at the tip Motor: Positive: Negative Neurovascular: Positive: Negative Musculoskeletal: Positive: Negative Neurological: Positive: Negative Psychological: Positive: Negative Is Patient Immunocompromised?: No Physical Exam - Summary Physical Exam Summary: Physical Exam: Const: Appears well. No signs of apparent distress present. Alert and oriented x 3. Musculo: Walks with a normal gait. Head/Face: Atraumatic, normocephalic on inspection. Eyes: EOMI and PERRLA in both eyes. Conjunctivae clear. No discharge noted ENT: Hearing normal, Respiratory: Respirations are unlabored. Lungs clear to auscultation bilaterally, no wheezing , rhonchi or rales noted . CVS: Regular rate and Rhythm, S1S2 normal , no murmurs identified. Extremities: Peripheral circulation is grossly normal. Pulses 2+ Abdomen : Soft non tender , nondistended , Bowel sounds present . No guarding , rebound tenderness or rigidity noted. Skin: No lesions or rash located on the upper extremities or on the lower extremities. : Normal penis and scrotum without any signs of infection. No discharge noted from penis. No hernia Neuro: Cranial nerves II to XII intact, motor and sensory intact. DTR Intact bilaterally. Mood is normal. Affect is normal. Triage Information Reviewed: Yes Vital Signs: Initial Vital Signs Temp 98 F 12/20/18 08:55 Pulse 58 12/20/18 08:55 Resp 16 12/20/18 08:55 BP 124/77 12/20/18 08:55 Pulse Ox 100 12/20/18 08:55 Vital Signs Reviewed: Yes Complaint Male Course/Dx - Course Course Of Treatment: During the visit today we discussed his symptoms and there is a possibility of a urethral stricture versus early prosthetic symptoms or it could be some form of chemical irritation but he has no signs of any injury or pathology. UA done today is negative. We discussed that he should follow up with urology for definitive management, he agrees with the plan - Differential Dx/Diagnosis Provider Diagnosis: Dysuria Discharge ED - Sign-Out/Discharge Documenting (check all that apply): Patient Departure All imaging exams completed and their final reports reviewed: No - Discharge Plan Condition: Stable Disposition: HOME Referrals: Irvin Hudson MD [Primary Care Provider] - Gage Short MD [Medical Doctor] - Additional Instructions: You don't have any sign of infection .Please see urology for further evaluation Patients blood pressure slightly high in Urgent care today , plan follow up with PCP for better control Return to Urgent care / ER if symptoms get worse. - Billing Disposition and Condition Condition: STABLE Disposition: Home
== END 2018-12-20 09:50 | disposition home or self-care (01) ==
LOC: UCCORT 08:46
DX: R30.0 Dysuria (principal); R35.0 Frequency of micturition; I10 Essential (primary) hypertension; Z88.0 Allergy status to penicillin; Z88.1 Allergy status to other antibiotic agents; Z88.8 Allergy status to other drugs, medicaments and biological substances; Z87.891 Personal history of nicotine dependence; Z91.041 Radiographic dye allergy status
CPT/HCPCS: 81003; 99211; G0463